=== PATIENT | female | born 1990 | race Caucasian/White ===

== ENCOUNTER 2024-11-23 13:26 | Outpatient (REF) | payer MEDICARE, MEDICAID, SELFPAY ==
[2024-11-23 18:45] LABS: Abs Immature Grans 0.02 10^3/uL (0.0-0.06); Absolute Basophil Count 0.08 10^3/uL (0.0-0.2); Absolute Eosinophil Count 0.18 10^3/uL (0.0-0.7); Absolute Lymphocyte Count 1.76 10^3/uL (1.2-3.4); Absolute Monocyte Count 0.65 10^3/uL (0.1-0.8); Absolute Neutrophil Count 7.44 10^3/uL (1.2-6.7); Basophils % 0.8 %; Eosinophils % 1.8 %; HCT 45.8 % (36.0-46.0); HGB 14.5 g/dL (11.2-15.7); Immature Grans % 0.2 %; Lymphocytes % 17.4 %; MCH 27.9 pg (27.0-33.0); MCHC 31.7 % (32.0-36.0); MCV 88 fL (80-95); MPV 10.7 fL (8.0-11.0); Monocytes % 6.4 %; Neutrophils % 73.4 %; Platelet Count 416 10^3/uL (130-400); RDW 14.2 % (11.7-14.6); RDW-SD 45.1 fL; WBC 10.13 10^3/uL (4.4-10.8)
[2024-11-23 19:30] LABS: ALT 32 U/L (14-59); AST 25 U/L (15-37); Albumin 4.1 g/dL (3.4-5.0); Alkaline Phosphatase 79 U/L (46-116); Anion Gap 9.3 mmol/L (3-11); BUN 16 mg/dL (7-18); Bilirubin, Total 0.49 mg/dL (0.2-1.0); CO2 24.7 mmol/L (21.0-32.0); CREATININE 0.9 mg/dL (0.55-1.02); Calcium 9.6 mg/dL (8.5-10.1); Chloride 105 mmol/L (98-107); Estimated GFR 87.11 (mL/min/1.73m2); Glucose 91 mg/dL (74-106); Potassium 4.2 mmol/L (3.5-5.1); Sodium 139 mmol/L (136-145); TSH 0.57 uIU/mL (0.36-3.74); Total Protein 8.2 g/dL (6.4-8.2); Vitamin B12 576 pg/mL (193-986); Vitamin D 25 Total 21.2 ng/mL (30-100)
[2024-11-24 22:23] LABS: T4, Free 1.4 ng/dL (0.8-2.2)
== END 2024-11-23 13:27 | disposition home or self-care (01) ==
LOC: NCHCN 13:26
PROVIDERS: Visit Provider Physician Assistant
DX: M79.2 Neuralgia and neuritis, unspecified (principal); R53.81 Other malaise; D72.829 Elevated white blood cell count, unspecified
CPT/HCPCS: 80053; 82306; 82607; 82746; 84439; 84443; 85025

== ENCOUNTER 2025-06-25 18:00 | Outpatient (REF) | payer MEDICARE, MEDICAID, SELFPAY ==
[2025-06-27 11:41] LABS: Lyme Ab w Rflx to Lyme Confirm Negative (Negative)
[2025-06-28 22:39] LABS: B. miyamotoi PCR Negative (Negative); Babesia divergens/MO-1 Negative (Negative); Ehrlichia muris eauclairensis Negative (Negative)
== END 2025-06-25 18:01 | disposition home or self-care (01) ==
LOC: NCHCN 18:00
PROVIDERS: Visit Provider Nurse Practitioner Family
DX: M25.50 Pain in unspecified joint (principal)
CPT/HCPCS: 87798; 86618

== ENCOUNTER 2025-08-13 09:55 | Outpatient (REF) | payer MEDICAID, SELFPAY ==
[2025-08-13 19:14] LABS: HCT 43.9 % (36.0-46.0); HGB 14.0 g/dL (11.2-15.7); MCH 28.1 pg (27.0-33.0); MCHC 31.9 % (32.0-36.0); MCV 88 fL (80-95); MPV 10.7 fL (8.0-11.0); Platelet Count 400 10^3/uL (130-400); RBC 4.99 10^6/uL (3.93-5.22); RDW 14.2 % (11.7-14.6); RDW-SD 45.5 fL; WBC 9.50 10^3/uL (4.4-10.8)
[2025-08-13 19:31] LABS: ALT 35 U/L (10-49); AST 20 U/L (<34); Albumin 4.2 g/dL (3.4-5.0); Alkaline Phosphatase 79 U/L (46-116); Anion Gap 7.3 mmol/L (3-11); BUN 16 mg/dL (9-23); Bilirubin, Total 1.10 mg/dL (0.2-1.2); CO2 26.7 mmol/L (20.0-31.0); Calcium 8.9 mg/dL (8.3-10.6); Chloride 107 mmol/L (98-107); Glucose 99 mg/dL (74-106); Potassium 4.5 mmol/L (3.5-5.1); Sodium 141 mmol/L (136-145); Total Protein 7.4 g/dL (5.7-8.2)
[2025-08-13 19:33] LABS: Ferritin 83 ng/mL (7-271)
[2025-08-13 19:34] LABS: TSH (W/Ref FT4) 0.77 uIU/mL (0.55-4.78)
== END 2025-08-13 09:56 | disposition home or self-care (01) ==
LOC: NCHCN 09:55
PROVIDERS: PCP Nurse Practitioner Family; Visit Provider Nurse Practitioner Family
DX: R42 Dizziness and giddiness (principal)
CPT/HCPCS: 80053; 85027; 82728; 84443